=== PATIENT | male | born 1945 | race Caucasian/White ===

== ENCOUNTER → 2023-02-06 | Outpatient (CLI) | payer MEDICARE ==
--- NOTE | 2023-02-09 08:14 | MR ---
EXAMINATION TYPE: MR brain and iac wo/w con DATE OF EXAM: 02/06/2023 9:21 PM CLINICAL INDICATION:Male, 77 years old with history of H91.90 I67.89; COMPARISON: None TECHNIQUE: Multi planar, multi sequence imaging was performed through the brain. Specialized thin s equences were obtained through the internal auditory canals. Pre-and post gadolinium sequences were obtained. MR contrast: IV Contrast: 10 cc Gadavist FINDINGS: Cerebral atrophy changes with proportional dilation to the ventricles. The mina-white junctions and cisterns appear unremarkable. Scattered foci of high T2 signal intensity are seen within the periven tricular white matter. Midline structures show no abnormality. Diffusion-weighted imaging shows no ev idence of restricted diffusion. The susceptibility weighted images do not reveal any evidence for ryan ro-hemorrhage. The bone marrow signal is within normal limits. Paranasal sinuses and mastoid air cells: Mild scattered paranasal sinus disease. Visualized orbits: Postsurgical changes to the right lens. After administration of gadolinium, no abnormal enhancement is seen. The internal auditory canal sequences demonstrate no significant irregularity. The 7th cranial nerve s, 8 cranial nerves, and cerebellar pontine angles appear unremarkable. After the administration alvaro olinium, no abnormal enhancement is seen within the internal auditory canals. Vascular loop: None. IMPRESSION: 1. No evidence of intracranial mass nor acute/subacute CVA. 2. No evidence of internal auditory canal abnormality. 3. Nonspecific white matter changes, likely secondary to small vessel ischemic disease. 4. Generalized cerebral atrophy with proportional dilation of the ventricles.
== END | disposition home or self-care (01) ==
LOC: RADMRIMAIN 21:30
PROVIDERS: ATTEND Nurse Practitioner Family
DX: G31.9 Degenerative disease of nervous system, unspecified (principal); H93.3X2 Disorders of left acoustic nerve; R90.82 White matter disease, unspecified; H91.92 Unspecified hearing loss, left ear; I67.89 Other cerebrovascular disease
CPT/HCPCS: 70553; A9585